=== PATIENT | female | born 1935 | race African-American/Black ===

== ENCOUNTER 2021-02-15 04:28 | Inpatient (IN) | payer OTHER ==
[2021-02-15] VITALS (7 sets, daily range): BP systolic 162–183; BP diastolic 47–117
[~2021-02-15] VITALS: Ht 165.1 cm; Wt 78.6 kg
--- NOTE | ~2021-02-15 | HC ---
[facility] [place] [address] CONSULTATION Name: ELISABET DENT Room #: 445-P ADM IN M.R.#: [id number] Admission: 02/15/21 Attend Phys: Ken Ca MD Discharge: Date of : [birth year] Report #: [id number] THIS REPORT FOR: cc: FAM - Family physician unknown FAM - Family physician unknown Cornell Carbajal MD ~ DOC #: [id number] Cornell Carbajal MD DATE OF SERVICE: 02/18/2021 HISTORY OF PRESENT ILLNESS: We were asked by Dr. Jon to see the patient. The patient is an 85-year-old, admitted 02/15/2021 with altered mental status. The patient is a resident at [facility]. The patient is on dialysis for end-stage renal disease. According to the emergency room note, [facility] tried to wake the patient for approximately 2 hours and they were unable to do so and with this depressed level of consciousness, the patient was sent to the Emergency Department. The patient is reportedly oriented to person and place at baseline and is able to converse regularly. All of this information is gleaned from the chart by the way as the patient is not communicative at this time, although she does appear to be awake in the sense that she opens her eyes and can move to some extent. PAST MEDICAL HISTORY: Includes end-stage renal disease, on chronic hemodialysis; diabetes mellitus. MEDICATIONS: At the [facility] included diltiazem, carvedilol, acetaminophen, citalopram, iron, Januvia, Lasix, midodrine, pantoprazole, repaglinide, Timolol eye drops, tramadol, vitamin D3. ALLERGIES: None known. SOCIAL HISTORY: No alcohol use. REVIEW OF SYSTEMS: Unable to perform due to altered state of consciousness. PHYSICAL EXAMINATION: VITAL SIGNS: Temperature 36.3, heart rate 75, respiratory rate 20, blood pressure 161/76, O2 sat 100 on 2 liters. HEENT: No scleral icterus. I see no arcus. NECK: No mass. I hear no bruit, but I cannot get the patient to stop breathing. CHEST: Clear to auscultation. HEART: Rhythm regular. ABDOMEN: Soft. [facility] [address] [place] [address] CONSULTATION Name: ELISABET DENT Room #: 445-P [facility] IN .R.#: [id number] Admission: 02/15/21 Attend Phys: Ken Ca MD Discharge: Date of : [birth year] Report #: [id number] EXTREMITIES: We note fistula, left upper arm. Trace edema bilaterally. No distal pulses. Bandage around left heel. NEUROLOGIC: No obvious motor dysfunction, but the patient does not respond readily to command. Does appear to move extremities somewhat spontaneously. MUSCULOSKELETAL: No obvious bone or joint asymmetry or deformity. SKIN: Skin is mentioned bandaged on left heel. No other skin lesions noted. DIAGNOSTIC DATA: We note that CT angiography was done. 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 It is not clear to me that the patient has had a focal transient ischemic attack or stroke, but of course, I would defer to neurology on that score. It is also difficult to say that carotid surgery and its inherent risks will provide any significant benefit for this patient. We will discuss with neurology and follow along with you. Thank you for the consult. MD MIKALA Chinchilla/GUERLINE By: 0824 1935 Cornell Carbajal MD /nt
[2021-02-15 06:01] LABS: HEMATOCRIT 30.2 % (37.0-47.0); HEMOGLOBIN 9.3 gm/dL (12.0-15.0); MCH 26.3 pg (26.0-34.0); MCHC 30.7 g/dL (28.0-37.0); MCV 85.6 fL (80.0-100.0); PLATELET COUNT 237 thou/uL (150-400); RBC 3.53 mil/uL (4.20-5.00); RDW 18.8 % (10.5-14.5); WBC 4.9 thou/uL (4.0-11.0)
[2021-02-15 06:12] LABS: CALCIUM 8.6 mg/dL (8.5-10.1); POTASSIUM 4.4 mmol/L (3.5-5.1)
[2021-02-15 06:14] LABS: INR 1.03; PROTIME 11.2 Seconds (10.5-12.1)
[2021-02-15 06:18] LABS: ALBUMIN 2.8 g/dL (3.4-5.0); TOTAL BILIRUBIN 0.5 mg/dL (0.2-1.0); TOTAL PROTEIN 6.8 g/dL (6.4-8.2)
[2021-02-15] MEDS ORDERED: TYLENOL EXTRA500 MG PO (06:22)
[2021-02-15] MEDS ORDERED: CELEXA 10 MG TA10 M1 PO (06:23)
[2021-02-15] MEDS ORDERED: CARVEDILOL3.125 MG PO (06:23)
[2021-02-15] MEDS ORDERED: CARTIA XT300 M1 PO (06:23)
[2021-02-15] MEDS ORDERED: FERRETTS325 MG PO (06:23)
[2021-02-15] MEDS ORDERED: FLONASE 0.05%50 MCG NARES (06:24)
[2021-02-15] MEDS ORDERED: JANUVIA25 MG PO (06:24)
[2021-02-15] MEDS ORDERED: LATANOPROST 0.2.5 ML OPHTHALMIC (06:25)
[2021-02-15] MEDS ORDERED: LASIX 40 MG TAB40 MG PO (06:25)
[2021-02-15] MEDS ORDERED: MIDODRINE HCL10 MG PO (06:27)
[2021-02-15] MEDS ORDERED: REPAGLINIDE1 MG PO (06:28)
[2021-02-15] MEDS ORDERED: PROTONIX40 M2 PO (06:28)
[2021-02-15] MEDS ORDERED: RENAL-VITE TAB0.8 MG PO (06:28)
[2021-02-15] MEDS ORDERED: SENNA PLUS TAB1 EACH PO (06:28)
[2021-02-15 06:29] LABS: URINE BILIRUBIN NEGATIVE (Negative); URINE BLOOD 1+ (Negative); URINE CLARITY CLEAR; URINE COLOR YELLOW; URINE GLUCOSE-RANDOM* 3+ (Negative); URINE KETONES NEGATIVE (Negative); URINE NITRITE-REFLEX NEGATIVE (Negative); URINE PROTEIN (DIPSTICK) 2+ (Negative); URINE SPECIFIC GRAVITY 1.015 (1.005-1.035); URINE UROBILINOGEN 0.2 E.U./dl (0.2-1.0)
[2021-02-15] MEDS ORDERED: TRAMADOL 50 MG50 MG PO (06:29)
[2021-02-15] MEDS ORDERED: TIMOLOL MALEATE5 M2 OPHTHALMIC (06:29)
[2021-02-15] MEDS ORDERED: VITAMIN D310 MC4 PO (06:30)
[2021-02-15 06:35] LABS: URINE LEUKOCYTES-REFLEX 2+ (Negative)
[2021-02-15 07:00] LABS: CASTS None Seen /LPF (None Seen); SQUAMOUS >10 Many /LPF (0-3)
[2021-02-15 07:04] LABS: URINE WBC-REFLEX >25 Many /HPF (0-5)
[2021-02-15 07:05] LABS: BACTERIA-REFLEX 1-9 Few /HPF (None Seen); CRYSTALS None Seen /LPF (None Seen); URINE RBC 1-2 Rare /HPF (NONE SEEN); YEAST-REFLEX Present (None Seen)
--- NOTE | 2021-02-15 07:20 | EKG ---
[facility] [place] [address] ELECTROCARDIOGRAM REPORT Name: ELISABET DENT [facility] [id number] Admission: 02/15/21 Attend Phys: Discharge: Date of : [birth year] Report #: [id number] [facility] ED Test Date: 2021-02-15 Test Time: 05:01:32 Pat Name: ELISABET DENT Department: Room: Gender: F Laboratory Chemist: jonathan alvarez : 1935 Requested By: Mukesh Lr Order Number: [id number] MD: Alessandro Dasilva Measurements Intervals Sanger Rate: 77 P: 16 WI: 194 QRS: 28 QRSD: 105 T: 31 QT: 411 QTc: 466 Interpretive Statements Sinus rhythm Borderline low voltage, extremity leads Abnormal R-wave progression, late transition Nonspecific T abnrm, anterolateral leads No previous ECG available for comparison Electronically Signed On 02-15-2021 7:20:46 CDT by Alessandro Dasilva [email or web address] <ELECTRONICALLY SIGNED> By: Alessandro Dasilva MD, [facility] 02/15/21 0720 050 0501 Alessandro Dasilva MD, FACC /EPI
[2021-02-15 09:19] LABS: ABSOLUTE NEUTROPHILS 3.3 thou/uL (1.4-8.2)
[2021-02-15 09:20] LABS: ANISOCYTOSIS 2+
[2021-02-15 09:22] LABS: ATYPICAL LYMPHS 2 %
--- NOTE | 2021-02-15 15:51 | NUR ---
ASSUMED PT CARE FROM ED AT 1330. PT IS AWAKE AND ANXIOUS. PT HAS IV SITE ON R AC. PT IS ACCUCHECK ACHS. PT HAS LEWIS CATH IN PLACE. PT IS A DIALYSIS PT AND HAS L ARM FISTULA. PT IS ON IS 2L 02 NC. CONSULTED RENAL TODAY. NO IV FLUID AND DIALYSIS TOMORROW PER DR ORDERED. PT HAS HISTORY OF DEMENTIA, HTN AND ESRD ON HD MWF. FINISHED ADMISSION BUT PT UNABLE TO GIVE HISTORY AND SIGN CONSENTS. PT ON THE BED, BED ON THE LOWEST POSITION, SIDE RAILS UP, CALL LIGHT WITHIN REACH. WILL CONTINUE TO MONITOR PT. FOLLOW POC.
--- NOTE | 2021-02-16 03:20 | NUR ---
PT IS A/O X1 AND IS ON BEDREST. 2 LITERS O2 NC. SOA WITH EXERTION. IMPULSIVE AND CONFUSED. APPEARS ANXIOUS AT TIMES AND WORRISOME. NURSE NOTIFIED RICCARDO THAT THE HOSPITAL HAS NO CONTACT INFORMATION FOR FAMILY ON FILE AND ASKED FOR THE INFORMATION. WAS GIVEN DAUGHTERS NAME AND PHONE NUMBER. ANASTASIA [phone]. ATTEMPTED TO CALL AND WAS UNSUCCESSFUL IN REACHING HER AND LEFT A MESSAGE ON THE VOICEMAIL. CONCERNED WITH LACK OF HISTORY PROVIDED BY RICCARDO OF PT HEALTH STATUS. SLING IN PLACE TO LEFT ARM AND BOOT TO LEFT FOOT WITH A DRSG. RICCARDO COULD NOT TELL ME WHY THESE ITEMS WERE IN PLACE OR WHY SHE NEEDED THEM. PT IS A/O X1 AND IS UNABLE TO ANSWER THESE QUESTIONS. C/O BACK PAIN BUT STATED SHE FELT BETTER WITH BEING REPOSITIONED. VSS. AFEBRILE. CONTINUES WITH JERKING LIKE MOVEMENTS AND TREMORS AT TIMES. HAD A HS SNACK AND JUICE. UNABLE TO FEED HERSELF. HS BS REQUIRED 4 UNITS OF INSULIN TO BE GIVEN. ON NUMEROUS OCCASIONS OF ENTERING PT ROOM PT HAD TAKEN OFF HER OXYGEN TUBING AND TRIED REMOVING HER LEWIS WITH THE STAT LOCK DETACHED FROM HER LEG. PT IS AT THIS POINT EASILY REDIRECTABLE BUT IS VERY FORGETFUL. IN ROOM NEAR NURSES STATION WITH FREQUENT CHECKS. FALL PRECAUTIONS IN PLACE, CALL LIGHT IS WITHIN REACH. WILL CONTINUE TO MONITOR.
[2021-02-16 04:20] VITALS: BP 203/109
[2021-02-16 06:12] LABS: HEMATOCRIT 30.5 % (37.0-47.0); HEMOGLOBIN 9.3 gm/dL (12.0-15.0); MCH 26.4 pg (26.0-34.0); MCHC 30.4 g/dL (28.0-37.0); MCV 86.8 fL (80.0-100.0); RBC 3.51 mil/uL (4.20-5.00); RDW 19.4 % (10.5-14.5); WBC 5.8 thou/uL (4.0-11.0)
[2021-02-16 07:40] VITALS: BP 172/110
[2021-02-16 09:25] VITALS: BP 168/99
--- NOTE | 2021-02-16 10:15 | NUR ---
Assumed care of pt at 0700. Pt a&ox1. Sling on left shoulder in place. Receiving dialysis this am. BP elevated. Provider notified. PO pain medication also ordered. Simmons catheter in place. Call light within reach. Frequent rounding. Fall precautions in place. Will continue to monitor.
[2021-02-16 16:15] VITALS: BP 169/83
[2021-02-16 20:00] VITALS: BP 180/81
--- NOTE | 2021-02-17 04:01 | NUR ---
PT IS A/O X1 AND IS ON BEDREST. TEARFUL AND ANXIOUS. IMPULSIVE TO REMOVE OXYGEN TUBING FROM NOSE. VOIDS PER CATHETER. LARGE BM THIS EARLY AM IN BEDPAN. PT IS EMOTIONAL AND IS HEARD NUMEROUS TIMES THROUGHOUT THE NIGHT. NURSE SAT WITH PT ON OCCASION TO GIVE COMFORT. PAIN MEDICATION GIVEN FOR LEFT SHOULDER PAIN DIRECTED. FALL PRECAUTIONS IN PLACE, CALL LIGHT IS WITHIN REACH. IN ROOM NEAR THE NURSES STATION WITH FREQUENT CHECKS.
[2021-02-17 06:06] LABS: HEP B SURFACE Ab(ANTI-HBS Non Reactive (()); HEPATITIS B SURFACE AG Negative (Negative)
[2021-02-17 07:15] VITALS: BP 174/92
--- NOTE | 2021-02-17 09:31 | NUR ---
Assumed pt care this am. Pt is alert & oriented x1 to self. Pt has iv site on r ac and l ua fistula. pt has delgado cath in place and uses bedpan. Pt is total care. Pt tolerated medication and diet well this am. No c/o nausea and vomiting this am. Pt had dialysis yesterday. Pt is acchucheck achs and HTN noted. Pt is on O2 1.5L NC. Pt has wound on l heel. Pt on the bed watching tv, bed on the lowest position, side rails up, call light within reach. Will continue to monitor pt. Follow poc.
[2021-02-17 16:00] VITALS: BP 149/75
[2021-02-17 19:10] VITALS: BP 148/63
[2021-02-17 21:02] VITALS: BP 148/63
--- NOTE | 2021-02-18 04:14 | NUR ---
UPON SHIFT ASSESSMENT, PT AOX2, TO PERSON AND PLACE. PT DENIES PAIN. PT HAS PRN PO TRAMADOL Q4HR AVAILABLE. PT REPORTS SOB WHILE AT REST AND WITH EXERTION, RELIEF OBTAINED AT 3L O2 VIA NC. PT TOLERATING PO INTAKE OF FLUIDS AND RENAL DIET WITHOUT ISSUE, PT WITHOUT NAUSEA OR EMESIS. PT INCONTINENT OF BOWEL AND BLADDER. PT RESTING IN BED THROUGHOUT SHIFT, FREQUENT REPOSITIONING ENCOURAGED, PT REFUSING REPOSITIONING ASSISTANCE DUE TO REPORTS OF COMFORT. PITTING +2 EDEMA NOTED TO LUE. PT REPORTS TINGLING IN FINGERS, CAPILLARY REFILL LESS THAN 3SEC, PERIPHERAL PULSES PALPABLE IN ALL EXTREMITIES. PT ENCOURAGED TO NOTIFY STAFF FOR ALL NEEDS, CALL LIGHT WITHIN REACH, BED ALARM ON, BED LOCKED IN LOWEST POSITION, ROOM REMAINS NEAR NURSES STATION, FREQUENT MONITORING WILL CONTINUE.
[2021-02-18 04:49] VITALS: BP 146/69
[2021-02-18 07:45] VITALS: BP 161/76
--- NOTE | 2021-02-18 09:32 | NUR ---
Notification of left heel wound-wound care pending to see. Admit from long-term with AMS, metabolic encephalopathy. Hx ESRD/dialysis, dementia, HTN, DM. BG 138-227. Eating 50-70% meals. Will add carb control to renal diet restriction and glucerna shake 1x day, otherwise low nutrition risk with appropriate nutrition interventions in place.
--- NOTE | 2021-02-18 12:04 | NUR ---
Patient alert and orinted to self, on 2L nasal canula, hemodylsis down in room tolerating well, medications held during that time, patient bedrest, denies any pain, vitals stable, and afbreile. Call light with in reach, will continue to monitor.
--- NOTE | 2021-02-18 13:45 | NUR ---
ASSESSMENT: CM REVIEWED CHART AND SPOKE WITH ATTENDING. 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 PT HAS HX OF ERRD AND GETS DIALYSIS M/W/F 1130 CHAIR TIME. CM SPOKE WITH ADMISSIONS TO UPDATE AND FAXED UPDATED CLINICAL. CM ALSO CONTACTED PATIENTS DPOA HER SISTER ANASTASIA DENT AT [phone] TO UPDATE. PLANS WILL BE FOR PATIENT TO RETURN TO [facility] ONCE MEDICALLY ABLE TO DO SO. PT NORMALLY USES A WHEELCHAIR FOR AMBULATION. CM WILL CONTINUE TO FOLLOW TO ASSIST NEEDED. PT IS GETTING DIALYSIS TODAY.
--- NOTE | 2021-02-18 14:47 | NUR ---
ASSESSMENT: CM REVIEWED CHART AND SPOKE WITH ATTENDING. 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 PT HAS HX OF ESRD AND GETS DIALYSIS M/W/F 1130 CHAIR TIME. CM SPOKE WITH ADMISSIONS TO UPDATE AND FAXED UPDATED CLINICAL. CM ALSO CONTACTED PATIENTS DAUGHTER ANASTASIA DENT WHO IS LISTED HER CONTACT AT [phone] TO UPDATE. PTS SON SUSIE DENT WAS ALSO HERE TO VISIT PATIENT HIS CONTACT IS [phone]. HE STATES HE IS THE DPOA AND CM ASKED THAT HE PROVIDE PAPERWORK. HE STATES HE DOES NOT BELIEVE HE HAS ANY. CM REACHED OUT TO [facility] AND THEY DO NOT HAVE AN OFFICIAL DPOA ON FILE BUT HAS DAUGHTER LISTED CONTACT. CM SPOKE AGAIN WITH DAUGHTER ANASTASIA WHO REPORTS THAT THERE IS NO OFFICIAL DPOA BUT SHE AND HER BROTHER LIVE LOCALLY. PLANS WILL BE FOR PATIENT TO RETURN TO [facility] ONCE MEDICALLY ABLE TO DO SO. PT NORMALLY USES A WHEELCHAIR FOR AMBULATION. CM WILL CONTINUE TO FOLLOW TO ASSIST NEEDED. PT IS GETTING DIALYSIS TODAY.
[2021-02-18 15:26] VITALS: BP 156/78
[2021-02-18 19:47] VITALS: BP 154/67
--- NOTE | 2021-02-19 03:17 | NUR ---
PT IS A/O X1 AND IS CONFUSED, FORGETFUL, AND AT TIMES CAN BE IMPULSIVE. REMAINS ON 2 LITERS O2 NC WITH A NON PRODUCTIVE COUGH AND SOB WITH EXERTION. VSS. AFEBRILE. C/O PAIN TO BILAT HEELS AND LEFT SHOULDER. PRN PAIN MEDICATION GIVEN DIRECTED. DRSGS TO BILAT HEELS REPLACED AND ARE C/D/I. PT HAS NOT SLEPT MUCH THIS NOC AND APPEARS ANXIOUS AND AT TIMES TEARFUL. NURSE SAT AT BEDSIDE TO OFFER COMFORT AND ALLOWED PT TO LISTEN TO CALMING MUSIC AN ALTERNATIVE DISTRACTION FROM IMPULSIVITY. Z GUARD APPLIED TO BOTTOM. BED [place] PROVIDED FOR ELIMINATION. FALL PRECAUTIONS IN PLACE, CALL LIGHT IS WITHIN REACH. WILL CONTINUE TO MONITOR.
[2021-02-19 04:01] VITALS: BP 183/86
[2021-02-19 08:17] VITALS: BP 183/86
--- NOTE | 2021-02-19 12:45 | HC ---
[facility] [place] [address] CONSULTATION Name: ELISABET DENT Room #: 445-P ADM IN M.R.#: [id number] Admission: 02/15/21 Attend Phys: Ken Ca MD Discharge: Date of : [birth year] Report #: [id number] THIS REPORT FOR: cc: FAM - Family physician unknown FAM - Family physician unknown Ryan Jon MD ~ DOC #: [id number] Ryan Jon MD DATE OF SERVICE: 02/17/2021 HISTORY OF PRESENT ILLNESS: This is an 85-year-old female patient who is unable to provide any reliable history at all. I tried to contact the family. There is no number in the computer. The only number is for the [facility]. She says she lives with son. I talked to the nurses and they think this patient came from a custodial. Records were reviewed in the computer. Apparently, this patient has an end-stage renal disease and she had an altered mental status. She had at that time depressed level of consciousness, but gradually improved, but more confused in the baseline, but that mean is not clear. Presently, she is able to talk, but she is not oriented. She had some difficulty expressing herself when she came in, but to me she is able to express, but does not have a good memory. REVIEW OF SYSTEMS: Indicates she missed the dialysis for which she came in. She was unconscious when she came in. She progressively became more conscious. Her blood sugar apparently was 281. There was some twitching noticed in this patient. This is all I can get as well as 14-point review of system was concern in this patient and this is all from the records. PAST MEDICAL HISTORY: Positive for being on dialysis. FAMILY AND SOCIAL HISTORY: Unavailable from this patient. She says she does not smoke or drink alcohol and does not have any family history of early age stroke. PHYSICAL EXAMINATION: NEUROLOGIC: She is alert. She can talk. I do not think she has much speech difficulty at the moment, but she can tell me what month it is, what hospital she is in. Cranial nerve examination II-XII was mostly nonfocal, but she can tell, she did not move the left shoulder, but she said it is broken. She moves all 4 extremities, but slowly. According to her, this is her baseline. She says she can feel things. She was not relaxed, but I could not check her reflexes. CARDIORESPIRATORY: Unremarkable. VITAL SIGNS: Blood pressure is 174/92, pulse is 96. LABORATORY DATA: Indicates a white count of 8.6. She did have a CT angiogram as well as CT angio and CT does show a stenosis of the left ICA. [address] [address] CONSULTATION Name: ELISABET DENT Room #: 445-P [facility] IN M.R.#: [id number] Admission: 02/15/21 Attend Phys: Ken Ca MD Discharge: Date of : [birth year] Report #: [id number] IMPRESSION: A complicated case who is difficult to evaluate because her baseline is unknown. She missed her dialysis and she is predisposed to have some encephalopathy if she has underlying baseline dementia, but this patient also has a left carotid stenosis and speech difficulty was noticed. Because of that, I think it is desirable to entertain the diagnosis of either a stroke or a small TIA in the left carotid distribution and if it was the case, then left carotid should be considered symptomatic. RECOMMENDATIONS: I will suggest talking to HEAD IRRIGATOR about MRI and if approved get an MRI done. If MRI shows a stroke in the left carotid distribution, then it is definite that the left carotid is symptomatic and we assured consider aggressive management if the family wants to proceed with that. If MRI is normal, then decision making becomes difficult. I will suggest a vascular surgery consult and will talk to hospitalist about getting an MRI done if possible. Thank you very much for this referral and if you have any questions, please feel free to contact me. MD MEHDI Sky/MEGAN <ELECTRONICALLY SIGNED> By: Ryan Jon MD 02/19/21 1245 1137 2119 Ryan Jon MD /nt
--- NOTE | 2021-02-19 12:46 | EEG ---
[facility] [place] [address] ELECTROENCEPHALOGRAM Name: ELISABET DENT Room #: 445-P ADM IN M.R.#: [id number] Admission: 02/15/21 Attend Phys: Ken Ca MD Discharge: Date of : [birth year] Report #: [id number] THIS REPORT FOR: //name// DOC #: [id number] Ryan Jon MD DATE OF SERVICE: 02/17/2021 This patient is being evaluated for altered mental status. EEG was done by placing the electrode by standard 10-20 system of electrode placement. Both referential and sequential montages were used for recording. Background activity in this patient was about 7 Hz and 30 microvolt. It is symmetrical, but poorly formed background activity. Photic stimulation is unremarkable. The patient appeared to be drowsy and that is associated with bilateral slowing and vertex sharp waves. No active epileptiform activity was noticed during this record. IMPRESSION: This is an abnormal record showing disorganized and poorly formed background activity. There is a nonspecific abnormality which can occur with encephalopathy, effect of psychotropic medication, dementia, etc. Clinical correlation is recommended. Thank you very much for this referral. Ryan Jon MD PK/MAXIMILIANO <ELECTRONICALLY SIGNED> By: Ryan Jon MD 02/19/21 1246 1658 1819 Ryan Jon MD /dennis
--- NOTE | 2021-02-19 15:04 | NUR ---
ON-GOING ASSESSMENT: CM REVIEWED CHART AND SPOKE WITH ATTENDING. PT IS SLOWLY PROGRESSING TOWARDS DISCHARGE GOALS. CM FAXED CLINICAL UPDATES TO [facility]. PER ATTENDING IF PATIENT PROGRESSESS SHE MAY POSSIBLY DISCHARGE TOMORROW. CM UPDATED FACILITY WELL DAUGHTER ANASTASIA AND SON SUSIE. CM WILL CONTINUE TO FOLLOW TO ASSIST NEEDED.
[2021-02-19 15:54] VITALS: BP 148/72
--- NOTE | 2021-02-19 20:11 | NUR ---
Patient alert and orinted to self, on 2L nasal canula, up x2 MAX assist with gait belt, air mattesse in use, vitals stable, and afbriele. Call light with in reach, will continue to monitor.
[2021-02-19 20:40] VITALS: BP 180/80
--- NOTE | 2021-02-20 03:15 | NUR ---
PT IS A/OX1. 1 LITER OF O2 NC AND SOB WITH EXERTION. NON PRODUCTIVE COUGH NOTED. FORGETFUL AND IMPULSIVE AT TIMES. DRSGS TO WOUNDS C/D/I. MORPHINE CREAM APPLIED TO BUTTOCKS DIRECTED. PRAFO BOOTS IN PLACE TO PROTECT HEELS. DENIES C/O PAIN OR DISCOMFORT THIS NOC. PLEASANT AND COOPERATIVE. FALL PRECAUTIONS IN PLACE, CALL LIGHT IS WITHIN REACH. WILL CONTINUE TO MONITOR.
[2021-02-20 05:05] VITALS: BP 184/78
[2021-02-20 05:20] VITALS: BP 125/85
[2021-02-20 07:49] VITALS: BP 180/86
[2021-02-20 08:50] VITALS: BP 150/86
[2021-02-20 12:33] LABS: CHOLESTEROL 218 mg/dL (<200); HDL CHOLESTEROL 75 mg/dL (>40); LDL CHOLESTEROL 124 mg/dL (<100); TC:HDL 2.9 Ratio (Not establshd); TRIGLYCERIDE 96 mg/dL (<150); VLDL 19 mg/dL (<40)
[2021-02-20] MEDS ORDERED: RENVELA800 MG PO (13:45)
[2021-02-20] MEDS ORDERED: PHENYTOIN SODI100 M3 PO (13:45)
[2021-02-20] MEDS ORDERED: COREG6.25 MG PO (13:45)
[2021-02-20] MEDS ORDERED: BAYER CHEWABLE81 MG PO (13:45)
--- NOTE | 2021-02-20 14:32 | NUR ---
ON-GOING ASSESSMENT: WARREN REVIEWED CHART. PT RECEIVED DIALYSIS TODAY. PLANS ARE FOR PATIENT TO RETURN TO HER SNF TODAY AT [facility]. CHART COPY WAS ORDERED. CM FAXED DISCHARGE PAPERWORK TO FACILITY AND CONFIRMED THEY RECEIVED IT. WARREN SPOKE WITH MANUELA IN ADMISSIONS TO NOTIFY HER OF DISCHARGE AND SHE IS ARRANGING TRANSPORTATION FOR AROUND 1600. WARREN LEFT VM WITH PATIENTS DAUGHTER TO NOTIFY HER. WARREN ALSO NOTIFIED BEDSIDE RN WHO HAS THE NUMBER FOR REPORT.
--- NOTE | 2021-02-20 16:11 | NUR ---
patient left with transport now to go back to facility. RN gave report to Cristela at the facility
--- NOTE | 2021-02-21 09:00 | HC ---
[facility] [place] [address] CONSULTATION Name: ELISABET DENT Room #: 445-P [facility] IN M.R.#: [id number] Admission: 02/15/21 Attend Phys: Ken Ca MD Discharge: 02/20/21 Date of : [birth year] Report #: [id number] THIS REPORT FOR: cc: FAM - Family physician unknown FAM - Family physician unknown Rober Painting MD ~ DOC #: [id number] Rober Painting MD DATE OF SERVICE: 02/18/2021 CHIEF COMPLAINT: Heel ulcers and coccygeal pressure ulceration. HISTORY OF PRESENT ILLNESS: This is an 85-year-old female patient from [facility], who presented with altered mental status. She was noted to have sacral and bilateral heel ulcers and I have been asked to see her in this regard. The patient is talkative in the room. She denies significant pain, although notes some discomfort in her heels. PAST MEDICAL HISTORY: Positive for type 2 diabetes mellitus, hypertension, hyperlipidemia. MEDICATIONS: Include diltiazem, carvedilol, citalopram, ferrous fumarate, fluticasone, Januvia, Lasix, latanoprost, midodrine, Protonix, Ashley-Emanuel, repaglinide, tramadol, timolol, cholecalciferol. SOCIAL HISTORY: Negative for alcohol or tobacco use. Family is present in the room. ALLERGIES: No known drug allergies. REVIEW OF SYSTEMS: GENERAL: Somewhat limited due to some what appears to be mild dementia or slowness in her answering questions. EYES: The patient denies any visual changes. ENT: The patient denies earache, nasal drainage, sore throat. CARDIOVASCULAR: The patient denies chest pain or palpitation, diaphoresis. PULMONARY: The patient denies cough, shortness of breath. GASTROINTESTINAL: The patient denies nausea or abdominal pain. ORTHOPEDIC: The patient is aware of the ulcers on her heels. Other systems are either unobtainable or negative. PHYSICAL EXAMINATION: VITAL SIGNS: The patient's vital signs at this time include temperature 36.4, pulse 89, respiration of 20, blood pressure 156/78. GENERAL: This is a chronically ill-appearing female patient who appears to be in minimal distress. [place] [id number] CONSULTATION Name: ELISABET DENT Room #: 445-P [facility] IN M.R.#: [id number] Admission: 02/15/21 Attend Phys: Ken Ca MD Discharge: 02/20/21 Date of : [birth year] Report #: [id number] HEENT: Head is normocephalic. Nose and throat clear. NECK: Supple. LUNGS: Clear. HEART: Regular. ABDOMEN: Soft, bowel sounds present. SKIN: Sacral region demonstrates a shallow stage III coccygeal pressure ulceration, it does not appear to be infected. No exposure of deep structures. She has what appeared to be stage II pressure ulcerations to both heels. NEUROLOGIC: The patient is alert and does appear to move all 4 extremities spontaneously. LABORATORY DATA: Includes white blood cell count 5.8 with hemoglobin 9.3, sodium 142, potassium 4.4, chloride 101, CO2 of 29, BUN 48, creatinine 8.0, glucose is 285. Albumin is 3.8. CLINICAL IMPRESSION: 1. Stage III pressure ulcer into the coccyx. 2. Stage II pressure ulcer on both heels. 3. Mild metabolic encephalopathy. 4. End-stage renal disease requiring hemodialysis. 5. Type 2 diabetes mellitus. 6. Hypertension. 7. Hyperlipidemia. RECOMMENDATIONS: At this point in time, we will recommend barrier cream, otherwise open to air. For the coccyx ulcer, she will need q. 2 hour turning and repositioning ____ surface; Xeroform, Kerlix to the heels with heel protectors while in bed. Continue medical management, need aggressive nutritional support to maximize wound healing. I appreciate being asked to see her in consultation. MD ROGER Manning/GUERLINE/TROY <ELECTRONICALLY SIGNED> By: Rober Painting MD 02/21/2100 0912 2158 Rober Painting MD /nt
[2021-02-21 21:06] LABS: SYPHILIS AB Non Reactive (Non Reactive)
== END 2021-02-20 17:13 | DRG 682 ==
LOC: ER 04:28 → EROBS 11:27 → 4S 11:27
PROVIDERS: Emergency Medicine; Hospitalist; Psychiatry & Neurology Neuromuscular Medicine; ADMIT Hospitalist; ATTEND Hospitalist
PROC: 5A1D70Z Performance of Urinary Filtration, Intermittent, Less than 6 Hours Per Day (ICD-10-PCS; principal; 2021-02-18)
PROC: 5A1D70Z Performance of Urinary Filtration, Intermittent, Less than 6 Hours Per Day (ICD-10-PCS; 2021-02-20)
DX: I12.0 Hypertensive chronic kidney disease with stage 5 chronic kidney disease or end stage renal disease (principal); G93.41 Metabolic encephalopathy; L89.153 Pressure ulcer of sacral region, stage 3; N18.6 End stage renal disease; N39.0 Urinary tract infection, site not specified; S42.212A Unspecified displaced fracture of surgical neck of left humerus, initial encounter for closed fracture; E44.0 Moderate protein-calorie malnutrition; E11.22 Type 2 diabetes mellitus with diabetic chronic kidney disease; L89.622 Pressure ulcer of left heel, stage 2; L89.612 Pressure ulcer of right heel, stage 2; E78.5 Hyperlipidemia, unspecified; G25.3 Myoclonus; F32.9 Major depressive disorder, single episode, unspecified; I65.29 Occlusion and stenosis of unspecified carotid artery; Z66 Do not resuscitate; R53.81 Other malaise; S42.212D Unspecified displaced fracture of surgical neck of left humerus, subsequent encounter for fracture with routine healing; Z99.2 Dependence on renal dialysis; Z68.28 Body mass index [BMI] 28.0-28.9, adult; Z22.39 Carrier of other specified bacterial diseases; W18.39XD Other fall on same level, subsequent encounter
CPT/HCPCS: 10100; 10102; 32100

== ENCOUNTER 2021-02-24 04:35 | Inpatient (IN) | payer OTHER, BC ==
[2021-02-24] VITALS (7 sets, daily range): BP systolic 134–183; BP diastolic 65–93
[~2021-02-24] VITALS: Ht 160 cm; Wt 75.3 kg
[~2021-02-24 04:35] MED LIST: BAYER CHEWABLE81 MG PO; CARTIA XT300 M1 PO; CARVEDILOL3.125 MG PO; CELEXA 10 MG TA10 M1 PO; COREG6.25 MG PO; FERRETTS325 MG PO; FLONASE 0.05%50 MCG NARES; JANUVIA25 MG PO; LASIX 40 MG TAB40 MG PO; LATANOPROST 0.2.5 ML OPHTHALMIC; MIDODRINE HCL10 MG PO; PHENYTOIN SODI100 M3 PO; PROTONIX40 M2 PO; RENAL-VITE TAB0.8 MG PO; RENVELA800 MG PO; REPAGLINIDE1 MG PO; SENNA PLUS TAB1 EACH PO; TIMOLOL MALEATE5 M2 OPHTHALMIC; TRAMADOL 50 MG50 MG PO; TYLENOL EXTRA500 MG PO; VITAMIN D310 MC4 PO
[2021-02-24 09:39] LABS: URINE BILIRUBIN NEGATIVE (Negative); URINE BLOOD 3+ (Negative); URINE CLARITY CLOUDY; URINE COLOR YELLOW; URINE GLUCOSE-RANDOM* 1+ (Negative); URINE KETONES NEGATIVE (Negative); URINE PROTEIN (DIPSTICK) 2+ (Negative); URINE UROBILINOGEN 0.2 E.U./dl (0.2-1.0)
[2021-02-24 09:42] LABS: URINE LEUKOCYTES-REFLEX 3+ (Negative); URINE NITRITE-REFLEX POSITIVE (Negative)
[2021-02-24 09:55] LABS: BACTERIA-REFLEX >30 Many /HPF (None Seen); CASTS None Seen /LPF (None Seen); CRYSTALS None Seen /LPF (None Seen); SQUAMOUS 4-10 Moderate /LPF (0-3); URINE RBC 3-10 Few /HPF (NONE SEEN); URINE WBC-REFLEX >25 Many /HPF (0-5)
[2021-02-24 10:55] LABS: ABSOLUTE NEUTROPHILS 3.6 thou/uL (1.4-8.2); BASOPHILS 0.8 % (0.0-2.0); HEMATOCRIT 29.5 % (37.0-47.0); HEMOGLOBIN 9.2 gm/dL (12.0-15.0); LYMPHOCYTES 35.3 % (24.0-44.0); MCH 26.2 pg (26.0-34.0); MCV 84.4 fL (80.0-100.0); MONOCYTES 12.5 % (1.0-8.0); PLATELET COUNT 303 thou/uL (150-400); POLYS 50.4 % (36.0-66.0); RDW 19.8 % (10.5-14.5); WBC 7.1 thou/uL (4.0-11.0)
[2021-02-24 11:07] LABS: CALCIUM 9.3 mg/dL (8.5-10.1); CREATININE 5.3 mg/dL (0.6-1.0); POTASSIUM 3.6 mmol/L (3.5-5.1)
[2021-02-24 11:13] LABS: ALBUMIN 2.8 g/dL (3.4-5.0); TOTAL BILIRUBIN 0.3 mg/dL (0.2-1.0); TOTAL PROTEIN 7.5 g/dL (6.4-8.2)
[2021-02-24 13:18] LABS: ANISOCYTOSIS 2+
[2021-02-24] MEDS ORDERED: MIRALAX17 G1 PO (13:55)
--- NOTE | 2021-02-24 17:55 | NUR ---
Pt transferred to unit from ED. Pt a&ox2. Pt c/o pain in left lower extremity. Prn pain meds administered. Lt upper extremity in a sling. Dialysis MWF. Simmons catheter in place. Pressure wound on sacral area, and rt and lt heel. Pictures taken. Wound care consulted. Family at bedside. Call light within reach. Fall precuations in place. Will continue to monitor.
[2021-02-25 00:16] VITALS: BP 134/65
--- NOTE | 2021-02-25 03:57 | NUR ---
PT LYING IN BED. LORTAB PROVIDING PAIN RELIEF. RESTING COMFORTABLY. FREQUENT OBSERVATION.
[2021-02-25 05:35] LABS: ABSOLUTE NEUTROPHILS 2.3 thou/uL (1.4-8.2); BASOPHILS 1.2 % (0.0-2.0); EOSINOPHILS 1.7 % (0.0-3.0); HEMATOCRIT 25.7 % (37.0-47.0); HEMOGLOBIN 8.4 gm/dL (12.0-15.0); LYMPHOCYTES 33.5 % (24.0-44.0); MCH 27.5 pg (26.0-34.0); MCHC 32.7 g/dL (28.0-37.0); MCV 84.2 fL (80.0-100.0); MONOCYTES 15.5 % (1.0-8.0); PLATELET COUNT 300 thou/uL (150-400); POLYS 48.1 % (36.0-66.0); RBC 3.05 mil/uL (4.20-5.00); RDW 19.2 % (10.5-14.5); WBC 4.9 thou/uL (4.0-11.0)
[2021-02-25 05:46] LABS: ALBUMIN 2.4 g/dL (3.4-5.0); CALCIUM 8.6 mg/dL (8.5-10.1); PHOSPHORUS 3.7 mg/dL (2.5-4.9); POTASSIUM 3.6 mmol/L (3.5-5.1); TOTAL BILIRUBIN 0.3 mg/dL (0.2-1.0); TOTAL PROTEIN 6.5 g/dL (6.4-8.2)
[2021-02-25 09:09] VITALS: BP 180/107
[2021-02-25 18:01] VITALS: BP 94/53
--- NOTE | 2021-02-25 18:30 | NUR ---
PT ASSESSED AT START OF SHIFT. DIALYZED THIS AM AND TOLERATED IT WELL. REPOSITIONED IN BED Q2HRS. HAD SOME INCONTINENT BM. EATING AND DRINKING W/ SOME ASSIST W/ MEALS. PAIN MED ONETIME FOR LT HIP PAIN.
[2021-02-25 19:01] VITALS: BP 124/69
[2021-02-26 04:21] VITALS: BP 138/68
--- NOTE | 2021-02-26 04:21 | NUR ---
ASSESSED AT START OF SHIFT. PT RESTING IN BED. EVENING MEDS GIVEN AND PT NIESHA IT WELL. FOLLEY INTACT TO D/D. PT INCONTINENT HAD A SMALL BM THIS SHIFT. FALL PREC IN PLACE HOURLY ROUNDING DONE. WILL CONT TO MONITOR. PT A&OX2 CONFUSED. NO FURTHER SIGNS OF DISCOMFORT. DIALYSIS FISTULA IN LEFT UA.
[2021-02-26 08:00] VITALS: BP 160/85
[2021-02-26 09:00] VITALS: BP 160/85
--- NOTE | 2021-02-26 11:09 | NUR ---
Pt triggered with low jamin score 11. With current p/u to sacral area, Lt/Rt heels; wound care consulted. Dx ESRD on HD 3x/wk. Other dx DM, HTN. Noted with 7# weight loss since last admit, could be d/t dialysis/fluid. Intakes at meals <50% this admit. BUN 35, Creat 6, Alb 2.4. BS range 114-270 x 48 hours. Will start Nepro supplement once daily d/t low PO itnake and increased PRO needs. Low nutrition risk with interventions in place.
--- NOTE | 2021-02-26 11:34 | NUR ---
ASSUMED PT CARE THIS AM. PT A&OX1. PATIENT HAS A LEWIS CATHETER IN PLACE, DRAINING WELL. PATIENT REMAINS INCONTINENT OF BOWEL. PATIENT HAS NO COMPLAINTS OF PAIN, NUMBNESS, OR TINGLING. IV BECAME INFILTRATED, HOSPITALIST ADVISED NOT TO GIVE 9 AM DOSE OF IV ANTIBIOTIC, THAT THE ANTIBIOTIC WOULD BE ALTERNATED TO SOMETHING PO. IV ANTIBIOTIC HELD, IV REMOVED. PATIENT OKAY TO HAVE NO IV PER HOSPITALIST. PATIENT HAS A FISTULA TO THE LEFT UPPER ARM, WRAPPED IN GAUZE. BILATERAL LOWER EXTREMETIES WRAPPED AND PRAFO BOOTS ON. PATIENT TOOK MORNING MEDICATIONS WITHOUT ISSUE. FALL PRECAUTIONS ARE IN PLACE, CALL LIGHT WITHIN REACH.
[2021-02-26] MEDS ORDERED: FLOMAX0.4 MG PO (14:37)
--- NOTE | 2021-02-26 15:04 | NUR ---
ASSESSMENT: CM REVIEWED CHART AND SPOKE WITH PT AT THE BEDSIDE. CM ALSO SPOKE WITH ATTENDING AND PTS DAUGHTER ANASTASIA THIS AM. CM NOTIFIED DAUGHTER PT IS POSSIBLE DISCHARGE LATER TODAY TO FACILITY. CM SPOKE WITH ATTENDING WHO REPORTS PATIENT CAN RETURN TO [facility] ([facility]) TODAY. CM NOTIFIED LIASON MANUELA IN ADMISSIONS WELL FAXED DISCHARGE PAPERWORK. CM ORDERED A CHART COPY. DAUGHTER WAS NOTIFIED OF POSSIBLE DISCHARGE THIS AM AND CM ALSO LEFT A VM THIS AFTERNOON NOTIFYING HER OF DISCHARGE BACK TO THE FACILITY. CM SPOKE WITH MANUELA IN ADMISSIONS WHO REPORTS THEY DO NOT CURRENTLY HAVE AN OFFICIAL DPOA ON FILE FOR PATIENT. LAST ADMISSION CM SPOKE WITH PTS DAUGHTER ANASTASIA WELL SON SUSIE. CM ALSO LEFT A VM FOR SON SUSIE PT WAS AGREEABLE. PT HAS HX OF ESRD AND CM FAXED FLOWSHEET TO FACILITY WITH DISCHARGE PAPERWORK. BEDSIDE RN HAS THE NUMBER FOR REPORT. CM IS AWAITING TRANSPORTATION TIME FROM FACILITY PT REQUIRES STRETCHER TRANSPORT. PT IS ALSO A BPCI PATIENT AND CM NOTIFIED PT OF PROGRAM AND PT WISHES TO RETURN TO HER FACILITY. AWAITING TIME FOR TRANSPORT.
--- NOTE | 2021-02-28 13:11 | HC ---
[facility] [place] [address] CONSULTATION Name: ELISABET DENT Room #: 436-P [facility] IN M.R.#: [id number] Admission: 02/24/21 Attend Phys: Lou Barajas MD Discharge: 02/26/21 Date of : [birth year] Report #: [id number] THIS REPORT FOR: cc: Tarik Newton MD, Srinath MD Althoff,Rober Flanagan MD ~ DOC #: [id number] Rober Painting MD DATE OF SERVICE: 02/26/2021 CHIEF COMPLAINT: Bilateral heel ulcerations. HISTORY OF PRESENT ILLNESS: This is an 86-year-old female patient whom we have seen in the past, was admitted on 02/24/2021. The patient is a resident at [facility]. She was noted to have bilateral heel ulcers, diabetes, and I have been asked to see her with regard to wound care. She denies any specific complaints at this time, notes some mild discomfort in her heels. PAST MEDICAL HISTORY: Positive end-stage renal disease requiring hemodialysis, type 2 diabetes mellitus, hypertension, hyperlipidemia, history of bilateral heel ulcerations. ALLERGIES: No known drug allergies. MEDICATIONS: Include diltiazem, polyethylene glycol, Januvia, latanoprost, Ultram, vitamin D3, Renvela, phenytoin, carvedilol. SOCIAL HISTORY: Negative for alcohol or tobacco use. Lives in nursing care facility. FAMILY HISTORY: Positive for diabetes and hypertension and heart disease. REVIEW OF SYSTEMS: CONSTITUTIONAL: The patient denies fever, chills or weight loss. NEUROLOGICAL: The patient denies focal weakness. EYES: The patient denies visual changes, redness or drainage. ENT: The patient denies earache, nasal drainage, or sore throat. CARDIOVASCULAR: The patient denies chest pain, palpitation, or diaphoresis. PULMONARY: The patient denies cough or shortness of breath. GASTROINTESTINAL: The patient denies nausea, vomiting, diarrhea or abdominal pain. ORTHOPEDIC: The patient does have ulcerations on both heels. Others systems in a 14-point review of systems are negative. PHYSICAL EXAMINATION: VITAL SIGNS: At this time include temperature 36.8, pulse 90, respirations 18, [facility] [address] [place] [address] CONSULTATION Name: ELISABET DENT Room #: 436-P [facility] IN [facility].#: [id number] Admission: 02/24/21 Attend Phys: Luo Barajas MD Discharge: 02/26/21 Date of : [birth year] Report #: [id number] blood pressure 160/85. GENERAL: This is an elderly female patient, appears to be in minimal distress. HEENT: Head, normocephalic. Nose and throat are clear. NECK: Supple. LUNGS: Clear. HEART: Regular rhythm without murmur. ABDOMEN: Soft, bowel sounds present. EXTREMITIES: Examination of the lower extremities demonstrate unstageable pressure ulcer to both heels with dry stable eschar in place. No evidence of infection. She has stage II pressure ulceration of the coccyx, is very superficial. No deep structure exposure and not infected. LABORATORY DATA: Include white blood cell count 4.9 with a hemoglobin of 8.4. Sodium 135, potassium 3.6, chloride 98, CO2 28, BUN 35, creatinine 6.0, glucose 218, albumin is 2.4. CLINICAL IMPRESSION: 1. Stage II pressure ulceration of the coccyx. 2. Unstageable pressure ulcers of both heels. 3. Metabolic encephalopathy. 4. End-stage renal disease, requiring hemodialysis 5. Type 2 diabetes mellitus. 6. Moderate protein-calorie malnutrition with albumin of 2.8. RECOMMENDATIONS: At this point in time, we will recommend Silvadene, morphine cream with zinc oxide barrier cream to the sacrococcygeal region b.i.d. and p.r.n., low air loss mattress, q.2 hour turning and positioning. Recommend PRAFO boots bilateral lower extremities, recommend topical Xeroform, Kerlix to the heels. Aggressive nutritional support. Continue medical management. Appreciate being asked to see her in consultation. MD ROGER Manning/MARLIN/PA <ELECTRONICALLY SIGNED> By: Robre Painting MD 02/28/21 1311 [id number] Rober Painting MD /nt
== END 2021-02-26 16:40 | DRG 535 ==
LOC: ER 04:35 → 4S 09:17 → EROBS 09:17 → 4S 10:45
PROVIDERS: Emergency Medicine; ADMIT Internal Medicine; ATTEND Internal Medicine
PROC: 5A1D70Z Performance of Urinary Filtration, Intermittent, Less than 6 Hours Per Day (ICD-10-PCS; principal; 2021-02-25)
DX: S32.502A Unspecified fracture of left pubis, initial encounter for closed fracture (principal); L89.153 Pressure ulcer of sacral region, stage 3; N18.6 End stage renal disease; G93.41 Metabolic encephalopathy; I12.0 Hypertensive chronic kidney disease with stage 5 chronic kidney disease or end stage renal disease; N39.0 Urinary tract infection, site not specified; E44.0 Moderate protein-calorie malnutrition; F03.90 Unspecified dementia, unspecified severity, without behavioral disturbance, psychotic disturbance, mood disturbance, and anxiety; I48.91 Unspecified atrial fibrillation; E11.22 Type 2 diabetes mellitus with diabetic chronic kidney disease; E78.5 Hyperlipidemia, unspecified; G40.909 Epilepsy, unspecified, not intractable, without status epilepticus; R33.9 Retention of urine, unspecified; K56.41 Fecal impaction; K52.9 Noninfective gastroenteritis and colitis, unspecified; R53.81 Other malaise; M16.0 Bilateral primary osteoarthritis of hip; I16.0 Hypertensive urgency; M17.0 Bilateral primary osteoarthritis of knee; L89.620 Pressure ulcer of left heel, unstageable; L89.610 Pressure ulcer of right heel, unstageable; Z83.3 Family history of diabetes mellitus; Z82.49 Family history of ischemic heart disease and other diseases of the circulatory system; Z74.01 Bed confinement status; Z79.82 Long term (current) use of aspirin; Z79.899 Other long term (current) drug therapy; Z68.29 Body mass index [BMI] 29.0-29.9, adult; Z87.81 Personal history of (healed) traumatic fracture
CPT/HCPCS: 10102; 32100

== ENCOUNTER 2021-05-29 17:40 | Emergency (ER) | payer OTHER, BC ==
[~2021-05-29] VITALS: Ht 165.1 cm; Wt 68.0 kg
--- NOTE | ~2021-05-29 | EMS ---
[address] [address] EMS Patient Care Report Name: ELISABET DENT Room #: DEP [facility] Roach#: [id number] Admission: 05/29/21 Attend Phys: Discharge: 05/29/21 Date of : [birth year] Report #: [id number] THIS REPORT FOR: //name// Report Transmitted: 05/30/2021 09:17 EMS Care Summary [place], [place]/[facility] Incident [id number] @ 05/29/2021 16:59 Incident Location [id number] [place] [address] Patient ELISABET DENT Female, 86 Years 1935 Patient Address [id number] [place] [address] [address] [place] [id number] Chief Complaint nausea Disposition Transported No Lights/[place] Dispatch Reason Sick Person Transported To [facility] Narrative Arrived to find pt in hospital bed. loaded pt onto cot and secured with cot straps. transported without incident. care to rn Initial Vitals @17:20BP: 186/118, @17:19P: 96,R: 16,BP: 180/120,Pain: 4/10,GCS: 15,SpO2: 97,Revised Trauma: 12, Assessments @17:43MENTAL:No Abnormalities,SKIN:No Abnormalities,HEENT:Head/Face: No Abnormalities,Eyes: No Abnormalities,Neck/Airway: No Abnormalities,LUNG [address] [address] EMS Patient Care Report Name: ELISABET DENT Room #: DEP [facility]#: [id number] Admission: 05/29/21 Attend Phys: Discharge: 05/29/21 Date of : [birth year] Report #: [id number] SOUNDS:General: No Abnormalities,Left Upper: No Abnormalities,Right Upper: No Abnormalities,Left Lower: No Abnormalities,Right Lower: No Abnormalities,ABDOMEN:General: No Abnormalities,Left Upper: No Abnormalities,Right Upper: No Abnormalities,Left Lower: No Abnormalities,Right Lower: No Abnormalities,PELVIS//GI:No Abnormalities,EXTREMITIES:Left Arm: No Abnormalities,Right Arm: No Abnormalities,Left Leg: No Abnormalities,Right Leg: No Abnormalities,PULSE:NEURO:No Abnormalities, Impression Nausea Procedures @17:43BLS AssessmentResponse: Unchanged Timeline 16:54,Call Received 16:54,Dispatch Notified 16:59,Dispatched 17:03,En Route 17:16,On Scene 17:18,At Patient 17:19,BP: 180/120 M,PULSE: 96,RR: 16 R,SPO2: 97 Ox,ETCO2: ,BG: ,PAIN: 4,GCS: 15, 17:20,BP: 186/118 M,PULSE: ,RR: R,SPO2: Ox,ETCO2: ,BG: ,PAIN: ,GCS: , 17:27,Depart Scene 17:34,At Destination 17:43,BLS Assessment,Response: Unchanged 17:45,Call Closed Disclaimer v1.1 Copyright 2020 [employer] This EMS Care Summary contains data elements from the applicable legal record (which may be displayed differently). It is designed to provide pertinent information for the following purposes: continuity of care, clinical quality, and state data reporting. The complete legal record is available to ED staff and administrators of the receiving hospital in [facility]'s Patient Tracker. All data is provided "as is."
[~2021-05-29 17:40] MED LIST changes: +FLOMAX0.4 MG PO; +MIRALAX17 G1 PO
[2021-05-29] MEDS ORDERED: CARDIZEM LA300 M1 PO (17:57)
[2021-05-29] MEDS ORDERED: RENAL-VITE TAB0.8 MG PO (17:59)
[2021-05-29] MEDS ORDERED: LIDOPIN28 GM TOP (18:01)
[2021-05-29] MEDS ORDERED: ONDANSETRON ODT4 MG PO (18:01)
[2021-05-29 18:48] LABS: ABSOLUTE NEUTROPHILS 3.2 thou/uL (1.4-8.2); BASOPHILS 0.9 % (0.0-2.0); EOSINOPHILS 0.6 % (0.0-3.0); HEMATOCRIT 36.1 % (37.0-47.0); HEMOGLOBIN 11.4 gm/dL (12.0-15.0); LYMPHOCYTES 21.9 % (24.0-44.0); MCHC 31.7 g/dL (28.0-37.0); MONOCYTES 11.3 % (1.0-8.0); PLATELET COUNT 222 thou/uL (150-400); POLYS 65.3 % (36.0-66.0); RBC 4.41 mil/uL (4.20-5.00); RDW 21.5 % (10.5-14.5)
[2021-05-29 19:08] LABS: CALCIUM 9.4 mg/dL (8.5-10.1); CREATININE 6.5 mg/dL (0.6-1.0); POTASSIUM 4.5 mmol/L (3.5-5.1)
[2021-05-29 19:18] LABS: ALBUMIN 2.8 g/dL (3.4-5.0); TOTAL BILIRUBIN 0.4 mg/dL (0.2-1.0); TOTAL PROTEIN 8.2 g/dL (6.4-8.2)
[2021-05-29] MEDS ORDERED: CARVEDILOL6.25 M1 PO (20:08)
[2021-05-29 20:50] LABS: ANISOCYTOSIS 2+
[2021-05-29 20:51] LABS: POLYCHROMASIA 1+
[2021-05-29 22:20] LABS: URINE BILIRUBIN NEGATIVE (Negative); URINE BLOOD 3+ (Negative); URINE CLARITY CLOUDY; URINE COLOR YELLOW; URINE GLUCOSE-RANDOM* 2+ (Negative); URINE KETONES TRACE (Negative); URINE NITRITE-REFLEX NEGATIVE (Negative); URINE PROTEIN (DIPSTICK) 2+ (Negative); URINE UROBILINOGEN 0.2 E.U./dl (0.2-1.0)
[2021-05-29 22:24] LABS: URINE LEUKOCYTES-REFLEX 3+ (Negative)
[2021-05-29 22:28] LABS: BACTERIA-REFLEX 1-9 Few /HPF (None Seen); CASTS None Seen /LPF (None Seen); CRYSTALS None Seen /LPF (None Seen); MUCUS 0-3 Light strn/LPF (None Seen); SQUAMOUS 0-3 Few /LPF (0-3); URINE RBC >20 Many /HPF (NONE SEEN); URINE WBC-REFLEX >25 Many /HPF (0-5); WBC CLUMPS Packed (None Seen)
[2021-05-29] MEDS ORDERED: CEPHALEXIN500 MG PO (22:30)
[2021-05-29 22:41] VITALS: BP 145/94
--- NOTE | 2021-05-30 07:17 | EKG ---
[place] [address] [place] [address] ELECTROCARDIOGRAM REPORT Name: ELISABET DENT [facility] [id number] Admission: 05/29/21 Attend Phys: Discharge: 05/29/21 Date of : [birth year] Report #: [id number] 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 : 1935 Requested By: Christina Waters Order Number: [id number] MD: Alessandro Dasilva Measurements Intervals [place] Rate: 83 P: 34 [place]: 187 QRS: 18 QRSD: 110 T: 20 QT: 403 QTc: 474 Interpretive Statements Sinus rhythm Low voltage, extremity leads Compared to ECG 02/15/2021 05:01:32 No significant changes Electronically Signed On 05-30-2021 7:17:30 CDT by Alessandro Dasilva [email or web address] <ELECTRONICALLY SIGNED> By: Alessandro Dasilva MD, [facility] 05/30/21 07 30 1831 Alessandro Dasilva MD, FACC /EPI
--- NOTE | 2021-05-30 07:17 | EKG ---
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: jonathan alvarez : 1935 Requested By: Christina Waters Order Number: [id number] MD: Alessandro Dasilva Measurements Intervals [place] Rate: 86 P: 50 SC: 185 QRS: 34 QRSD: 106 T: 31 QT: 400 QTc: 479 Interpretive Statements Sinus rhythm Ventricular bigeminy Low voltage, extremity leads Compared to ECG 05/29/2021 18:31:30 Ventricular premature complex(es) now present Electronically Signed On 05-30-2021 7:17:33 CDT by Alessandro Dasilva [email or web address] <ELECTRONICALLY SIGNED> By: Alessandro Dasilva MD, [facility] 05/30/21716 09 09 Alessandro Dasilva MD, FACC /EPI
== END 2021-05-29 22:58 ==
LOC: ER 17:40
PROVIDERS: Nurse Practitioner Family
DX: N39.0 Urinary tract infection, site not specified (principal); N18.6 End stage renal disease; K59.00 Constipation, unspecified; R73.9 Hyperglycemia, unspecified; R11.0 Nausea; Z79.82 Long term (current) use of aspirin; Z79.899 Other long term (current) drug therapy; Z79.1 Long term (current) use of non-steroidal anti-inflammatories (NSAID); Z79.891 Long term (current) use of opiate analgesic